=== PATIENT | female | born 1965 | race African-American/Black ===

== ENCOUNTER 2017-03-15 22:35 | Emergency (ER) | payer MEDICAID, OTHER ==
[~2017-03-15] VITALS: Ht 157.5 cm; Wt 63.5 kg
[2017-03-15 22:49] VITALS: BP 140/77
--- NOTE | 2017-03-16 01:22 | NUR ---
51Y F BIB SELF C/O AB PAIN 9/10 AND DIZZINESS X 1 DAY. PT DENIES ANY FALL OR LOC. PT STATES SHE HAS ANEMIA D/T ARTHRITIS FROM DX FROM HER PCP. PT STATES SHE IS ALSO CONSTIPATED, HAS BOWEL MOVEMENT ONCE EVERY 3 DAYS.
--- NOTE | 2017-03-16 01:22 | NUR ---
PT TAKEN TO BED 3
[2017-03-16] MEDS ORDERED: KETOROLAC 30 MG/ML VIAL IM ONE (01:40)
[2017-03-16] MEDS ORDERED: HYDROcodone/APAP 5/325 MG 1 TAB TAB PO ONE (01:40)
--- NOTE | 2017-03-16 01:49 | NUR ---
PT REFUSED MEDS-STS "I HAVE TO WORK TODAY." ER NOTIFTED
--- NOTE | 2017-03-16 01:50 | NUR ---
LAB AT BEDSIDE
[2017-03-16 01:58] LABS: BASOPHILS # (AUTO) 0.2 K/uL (0.00-0.22); BASOPHILS % (AUTO) 3.2 % (0.0-2.0); EOSINOPHILS # (AUTO) 0.2 K/uL (0-0.4); EOSINOPHILS % (AUTO) 3.2 % (0.0-4.0); HEMOGLOBIN 9.1 g/dL (12.0-16.0); LYMPHOCYTES # (AUTO) 1.8 K/uL (2.5-16.5); MEAN CORPUSCULAR HEMOGLOBIN 21 pg (27-31); MEAN CORPUSCULAR HGB CONC 29 g/dL (33-37); MEAN CORPUSCULAR VOLUME 73 fL (80-94); MONOCYTES # (AUTO) 0.4 K/uL (0.8-1.0); MONOCYTES % (AUTO) 7.7 % (1.7-9.3); NEUTROPHILS # (AUTO) 2.6 K/uL (1.8-7.7); NEUTROPHILS % (AUTO) 51.5 % (42.2-75.2); PLATELET COUNT (AUTO) 238 K/uL (140-450); RED BLOOD CELL COUNT(AUTO) 4.32 MIL/uL (4.20-5.40); WHITE BLOOD COUNT (AUTO) 5.2 K/uL (4.8-10.8)
[2017-03-16 02:05] LABS: APPEARANCE,URINE SL CLOUDY (CLEAR); BILIRUBIN,URINE NEGATIVE (NEGATIVE); BLOOD, URINE 3+ (NEGATIVE); COLOR,URINE YELLOW (YELLOW); LEUKOCYTE ESTERASE ,URINE NEGATIVE (NEGATIVE); NITRITE, URINE NEGATIVE (NEGATIVE); PH,URINE 6.5 (5.0-9.0); PROTEIN,URINE NEGATIVE (NEGATIVE); UGLUCOSE NEGATIVE (NEGATIVE); UROBILINOGEN,URINE 0.2 EU/dL (0.2 - 1)
[2017-03-16 02:09] LABS: HEMATOCRIT 27.3 % (36-48); LYMPHOCYTES % (AUTO) 34.4 % (20.5-51.1)
[2017-03-16 02:14] LABS: BACTERIA,URINE FEW /HPF (None Seen); WBC,URINE 0-3 /HPF (0-5)
[2017-03-16 02:14] LABS: ALBUMIN 3.7 g/dL (3.4-5.0); ANION GAP 11.2 (8-16); CALCIUM 8.5 mg/dL (8.5-10.1); CREATININE 0.9 mg/dL (0.6-1.3); POTASSIUM 4.2 mmol/L (3.5-5.1); TOTAL BILIRUBIN 0.3 mg/dL (0.0-1.0); TOTAL PROTEIN, SERUM 7.8 g/dL (6.4-8.2)
[2017-03-16 02:15] LABS: SQUAMOUS EPITHELIAL CELL,UR 0-3 /LPF (0-3 (FEW))
[2017-03-16 02:40] VITALS: BP 101/67
--- NOTE | 2017-03-16 02:40 | NUR ---
Patient discharged with v/s stable. Written and verbal after care instructions given and explained. Patient alert, oriented and verbalized understanding of instructions. Ambulatory with steady gait. All questions addressed prior to discharge. ID band removed. Patient advised to follow up with PMD. Rx of MECLIZINE HYDROCHLORIDE given. Patient educated on indication of medication including possible reaction and side effects. Opportunity to ask questions provided and answered.
== END 2017-03-16 02:40 | disposition home or self-care (01) ==
LOC: MED 22:35
DX: R42 Dizziness and giddiness (principal); R10.9 Unspecified abdominal pain; M54.2 Cervicalgia; H53.8 Other visual disturbances; F17.210 Nicotine dependence, cigarettes, uncomplicated; Z71.6 Tobacco abuse counseling; Z86.2 Personal history of diseases of the blood and blood-forming organs and certain disorders involving the immune mechanism
CPT/HCPCS: 36415; 80053; 81001; 81025; 85025; 93005; 96372; 99285; J1885

== ENCOUNTER 2018-01-27 00:42 | Emergency (ER) | payer MEDICAID, OTHER ==
[~2018-01-27] VITALS: Ht 157.5 cm; Wt 50.6 kg
[2018-01-27 00:50] VITALS: BP 128/77
[2018-01-27 04:09] VITALS: BP 128/77
== END 2018-01-27 04:09 | disposition home or self-care (01) ==
LOC: MED 00:42
DX: K42.9 Umbilical hernia without obstruction or gangrene (principal)
CPT/HCPCS: 99284

== ENCOUNTER 2018-02-21 14:50 | Emergency (ER) | payer MEDICAID ==
[~2018-02-21] VITALS: Ht 157.5 cm; Wt 48.8 kg
[2018-02-21 14:57] VITALS: BP 152/97
--- NOTE | 2018-02-21 15:00 | NUR ---
PT ABMBULATES TO BED 5, REPORT GIVEN TO IHSAN TERRY
--- NOTE | 2018-02-21 15:15 | NUR ---
PATIENT PRESENTS TO ED WITH WOKE UP THIS MORNING WITH SLIGHT SWELLING LT CHEEK WITH NUMBNESS AND PAIN WHEN BENDING OVER; PRESCIRBED NAPROXEN, HYDROCODONE, ISRAEL-SYNEPRINE YESTERDAY HX; DENIES RX; NAPROXEN, HYDROCODONE, ISRAEL-SYNEPRINE; DENIES N/V/D; SKIN IS PINK/WARM/DRY; AAOX4 WITH EVEN AND STEADY GAIT; LUNGS CLEAR BL; HR EVEN AND REGULAR; PT DENIES ANY FEVER, CP, SOB, OR COUGH AT THIS TIME; PATIENT STATES PAIN OF 0/10 AT THIS TIME; VSS; PATIENT POSITIONED FOR COMFORT; HOB ELEVATED; BEDRAILS UP X2; BED DOWN. ER MD MADE AWARE OF PT STATUS.
[2018-02-21 18:05] VITALS: BP 148/94
--- NOTE | 2018-02-21 18:05 | NUR ---
Patient discharged with v/s stable. Written and verbal after care instructions given and explained. Patient alert, oriented and verbalized understanding of instructions. Ambulatory with steady gait. All questions addressed prior to discharge. ID band removed. Patient advised to follow up with PMD. Rx of PREDNISONE AND AUGMENTIN given. Patient educated on indication of medication including possible reaction and side effects. Opportunity to ask questions provided and answered.
== END 2018-02-21 18:05 | disposition home or self-care (01) ==
LOC: MED 14:50
DX: J32.9 Chronic sinusitis, unspecified (principal); F17.210 Nicotine dependence, cigarettes, uncomplicated
CPT/HCPCS: 99283

== ENCOUNTER 2022-08-10 01:28 | Emergency (ER) | payer MEDICAID, OTHER ==
[~2022-08-10] VITALS: Ht 157.5 cm; Wt 49.9 kg
[2022-08-10 01:35] VITALS: BP 144/100
[2022-08-10] MEDS ORDERED: IBUP-2213 PO (02:51)
[2022-08-10] MEDS ORDERED: ONDA-188 SL (02:51)
[2022-08-10 03:00] VITALS: BP 135/86
--- NOTE | 2022-08-10 03:00 | NUR ---
MIGUEL SEEN AND EVALUATED BY FELICITA KAY. NO NURSING INTERVENTIONS NEEDED. Patient discharged with v/s stable. Written and verbal after care instructions given and explained. Patient alert, oriented and verbalized understanding of instructions. Ambulatory with steady gait. All questions addressed prior to discharge. ID band removed. Patient advised to follow up with PMD. Rx of IBUPROFEN AND ZOFRAN given. Patient educated on indication of medication including possible reaction and side effects. Opportunity to ask questions provided and answered.
== END 2022-08-10 03:00 | disposition home or self-care (01) ==
LOC: MED 01:28
DX: U07.1 COVID-19 (principal); R42 Dizziness and giddiness; Z79.899 Other long term (current) drug therapy
CPT/HCPCS: 99283

== ENCOUNTER 2024-03-18 21:28 | Emergency (ER) | payer OTHER ==
[~2024-03-18] VITALS: Ht 157.5 cm; Wt 49.4 kg
[~2024-03-18 21:28] MED LIST: IBUP-2213 PO; ONDA-188 SL
[2024-03-18 22:01] VITALS: BP 109/66; PULSE 77; RESP 18; TEMP 97.6; O2SAT 96
== END 2024-03-19 00:33 | disposition left against medical advice (07) ==
LOC: MED 21:28
DX: H92.02 Otalgia, left ear (principal); I10 Essential (primary) hypertension; Z53.21 Procedure and treatment not carried out due to patient leaving prior to being seen by health care provider